=== PATIENT | female | born 1970 | race Caucasian/White ===

== ENCOUNTER 2023-11-05 06:56 | Emergency (ER) | payer OTHER, SELFPAY ==
--- NOTE | ~2023-11-05 | MR_ITS ---
EXAMINATION: MR BRAIN WITHOUT CONTRAST CLINICAL INFORMATION: Vertigo and dizziness COMPARISON: Same day noncontrast head CT TECHNIQUE: Multiplanar multisequence MR imaging of the brain was obtained without intravenous contrast. FINDINGS: There is no acute infarct on diffusion-weighted imaging. There is no intracranial hemorrhage on iron-sensitive imaging. No extra-axial collection or mass effect/herniation. There are several scattered foci of nonspecific supratentorial white matter T2/FLAIR signal abnormality. No hydrocephalus. The ventricles are normal in morphology and size. The major flow voids at the skull base are preserved. The midline structures are normal. The cerebellar tonsils are normally positioned. The craniocervical junction is normal. There is evidence of ACDF at C4-C5. There is a large disc extrusion at C3-C4 with severe spinal canal stenosis. Marrow signal is within normal limits. The visualized soft tissues are without significant abnormality. Mild ethmoid sinus mucosal thickening. Small right mastoid fluid. MR/MR head/brain wo con IMPRESSION: 1. No acute infarct or other acute intracranial abnormality. 2. There is a large disc extrusion at C3-C4 with severe spinal canal stenosis. If there are clinical symptoms attributable to myelopathy, this could be further assessed with a dedicated MRI of the cervical spine
--- NOTE | ~2023-11-05 | CT_ITS ---
EXAMINATION: CT HEAD WITHOUT CONTRAST CLINICAL INFORMATION: Dizziness COMPARISON: None available. TECHNIQUE: Contiguous axial imaging was performed from the skull base to vertex without intravenous administration of contrast. This CT examination was performed using dose optimization techniques as appropriate, variously including the following: *Automated exposure control *Adjustment of mA and/or kV according to patient size (this includes techniques or standardized protocols for targeted exams where dose is matched to indication/reason for exam; i.e. extremities or head) *Use of iterative reconstruction technique DLP: 635 mGy-cm FINDINGS: There is no evidence of acute intracranial hemorrhage or territorial infarction. No abnormal mass effect or midline shift is seen. Serrano to white matter differentiation is well preserved. No extra-axial fluid collections are identified. The ventricles are normal in size. There is no abnormal attenuation within the brain parenchyma. The osseous structures and soft tissues are normal. Small amount of fluid in the right mastoid air cells. The mastoid air cells and visualized portions of the paranasal sinuses are well aerated. CT/CT head/brain wo IV con IMPRESSION: 1. No acute intracranial pathology. 2. Small amount of fluid in the right mastoid air cells.
--- NOTE | ~2023-11-05 | XR_ITS ---
EXAMINATION: XR CHEST CLINICAL INFORMATION: Dizziness COMPARISON: Chest radiograph from 11/07/2017 TECHNIQUE: Frontal view of the chest was obtained. FINDINGS: No focal consolidation. No pneumothorax. Trachea is midline. Cardiac mediastinal silhouette is not enlarged. No large pleural effusion. Lower cervical spinal hardware, grossly intact. Soft tissues are unremarkable. XR/XR chest 1V IMPRESSION: No acute cardiopulmonary process.
[2023-11-05 07:06] VITALS: BP 146/78; PULSE 63; O2SAT 100
[2023-11-05 07:11] VITALS: BP 158/79; PULSE 78; RESP 16; TEMP 36.5; O2SAT 98; BMI 33.2
--- NOTE | 2023-11-05 07:22 | ECG_ITS ---
Test Reason : DIZZINESS Blood Pressure : / mmHG Vent. Rate : 059 BPM Atrial Rate : 059 BPM P-R Int : 184 ms QRS Dur : 080 ms QT Int : 442 ms P-R-T Axes : 052 039 071 degrees QTc Int : 437 ms Sinus bradycardia Otherwise normal ECG When compared with ECG of 07-NOV-2017 05:54, No significant change was found Referred By: Griffin Vickers Electronically Signed By:ZOFIA GARCIA MD
--- NOTE | 2023-11-05 07:26 | ED.GENADULT ---
HPI - General Adult General Chief complaint: Nausea/Vomiting/Diarrhea Stated complaint: NAUSEA VOMITING Time Seen by Provider: 11/05/23 07:21 Source: patient, family and EMS Mode of arrival: EMS Limitations: no limitations History of Present Illness ED Provider: DR. Vickers HPI narrative: 53-year-old female brought in by ambulance for evaluation of sudden onset of nausea and vomiting. Patient went to bed last night fine woke up at 05:00 felt hot, patient felt dizzy and room spinning around her then she started to have nausea and vomiting several times, patient had 1 loose stool episode in the morning, patient has epigastric pain thinks it is because of vomiting, otherwise declined headache, weakness, or numbness. Never had similar episodes in the past. Patient has been complaining of left ear pain, no facial pressure or nasal discharge. No other sick contacts, no recent travel, no recent use of antibiotic. Related Data Previous Rx's ?Medication ?Instructions ?Recorded sulfamethoxazole 800 1 tab PO BID #10 tabs 11/26/22 mg-trimethoprim 160 mg tablet (Bactrim DS) meclizine 25 mg tablet 25 mg PO BID PRN motion sickness 11/05/23 #20 tabs ondansetron 4 mg disintegrating 4 mg PO Q8-12H PRN nausea and 11/05/23 tablet vomiting #10 tabs Allergies Allergy/AdvReac Type Severity Reaction Status Date / Time bupropion [From WELLBUTRIN] Allergy Intermediate HIVES Verified 11/05/23 07:15 Review of Systems Review of Systems: All other systems are reviewed and are negative Constitutional: Reports as per HPI and Reports no additional constitutional complaints Eyes: Reports as per HPI and Reports no additional eye complaints Reports system reviewed and no additional complaints, except as documented Cardiovascular: Reports as per HPI and Reports no additional cardiovascular complaints Respiratory: Reports as per HPI and Reports no additional respiratory complaints Gastrointestinal: Reports as per HPI and Reports no additional gastrointestinal complaints Genitourinary: Reports no additional female genitourinary complaints Musculoskeletal: Reports no additional musculoskeletal complaints Skin/Breast: Reports system reviewed and no additional complaints, except as docu Psychiatric: Reports no additional psychiatric complaints Endocrine: Reports no additional endocrine complaints Hematologic/Lymphatic: Reports no additional hematologic/lymphatic complaints Allergic/Immunologic: Reports no additional allergic/immunologic complaints Reports system reviewed and no additional complaints, except as documented and Reports Abnormal speech present [facility] Social History Social History Alcohol intake: current Alcohol intake frequency: a few times a month Patient Tobacco Use Status: Never used Tobacco Smoked in Last 30 Days: Yes Use of substances other than those prescribed or required for medical reasons: No Advance Directives: No Advance Directives Information Provided: No Do you have a plan to hurt others: No Plan Physical Exam ED Vital Signs: Vital Signs - 24 hr 11/05/23 07:11 11/05/23 10:19 Temperature 97.7 F 97.5 F Pulse Rate 78 79 Respiratory Rate 16 11 L Blood Pressure 158/79 H 134/79 Pulse Oximetry 98 100 Oxygen Delivery Method Room Air Room Air BMI result Body Mass Index 33.2 Vital signs have been reviewed and appear to be correct. Blood pressure elevated. Heart rate normal. Respiratory rate normal. Temperature normal. Oxygen saturation normal. Appearance: Alert. Oriented X3. No acute distress. Head: Normal external exam. Normocephalic. Atraumatic. No Carrillo signs noted. No raccoon eyes noted Eyes: PERRLA. EOMI. Conjunctiva and sclera normal. Eyelids normal. ENT: TM's Normal. Pharynx normal. Uvula midline. Moist mucous membranes. No trismus noted. No drooling noted. No muffled voice noted. Neck: Normal inspection. Neck supple. FROM. No adenopathy. Thyroid Normal. No meningeal signs. No neck mass noted. CVS: Normal heart rate and rhythm. Heart sound normal. No murmurs noted. Pulses normal throughout. Respiratory: No respiratory distress. Painless inspiration. Breath sounds normal. No wheezes/rales/rhonchi noted. Chest nontender. No accessory muscle usage noted or decreased air movement noted. Abdomen: Soft and nontender. Bowel sounds normal in all 4 quadrants. No distention noted. No organomegaly noted. No visible injury noted. Back: No CVA tenderness. Full range of motion noted. Skin: Skin warm and dry. Normal skin color. Normal skin turgor. No rashes/lesions/lacerations noted. Extremities: No lower extremity edema. Extremities exhibit normal range of motion. Extremities nontender. Neuro: Oriented X 3. Cranial nerve exam: II-XII are grossly intact No motor deficit. No sensory deficit. Reflexes normal. Normal cerebellar exam, no [id number] dysmetria. 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 Time: 15:50 Medications Administered Discontinued Medications Generic Name Dose Route Start Last Admin Trade Name Freq PRN Reason Stop Dose Admin Al Hydroxide/Mg Hydroxide 30 ml 11/05/23 07:21 11/05/23 10:27 Magnesium Hydrox/Alum Hydrox 30 Ml Oral.Susp PO 11/05/23 07:22 30 ml ONCE ONE Administration Famotidine 20 mg 11/05/23 07:21 11/05/23 07:43 Famotidine/Pf 20 Mg/2 Ml Vial IVPUSH 11/05/23 07:22 20 mg ONCE ONE Administration Sodium Chloride 1,000 mls @ 999 mls/hr 11/05/23 07:22 11/05/23 10:45 Ns IV 11/05/23 08:22 Infused .Q1H1M ONE Infusion Lorazepam 1 mg 11/05/23 07:21 11/05/23 07:43 Lorazepam 2 Mg/Ml Vial IVPUSH 11/05/23 07:22 1 mg ONCE ONE Administration Lorazepam 1 mg 11/05/23 09:06 11/05/23 10:24 Lorazepam 2 Mg/Ml Vial IVPUSH 11/05/23 09:07 1 mg ONCE ONE Administration Meclizine HCl 25 mg 11/05/23 07:21 11/05/23 07:51 Meclizine Hcl 25 Mg Tablet PO 11/05/23 07:22 25 mg ONCE ONE Administration Meclizine HCl 25 mg 11/05/23 09:06 11/05/23 10:24 Meclizine Hcl 25 Mg Tablet PO 11/05/23 09:07 25 mg ONCE ONE Administration Medical Decision Making Differential Diagnosis Differential Diagnoses: The differential diagnosis associated with the presentation includes ( Cerebellar stroke, labyrinthitis, electrolyte derangement, dehydration, severe anemia.) Admission/Observation Consideration of admission/observation: Escalation of care including admission/observation considered Lab Data MDM Lab Attestation statement: I reviewed the patient's lab results. 11/05/23 07:50 11/05/23 07:50 Labs: Lab Results 11/05/23 11/05/23 Range/Units 07:50 07:51 WBC 17.0 H (4.8-10.8) X10*3/uL RBC 4.41 (4.20-5.50) X10*6/uL Hgb 13.2 (12.0-16.0) g/dl Hct 39.2 (37.0-47.0) % MCV 88.9 (80.0-98.0) fL MCH 29.9 (27.0-33.0) pg MCHC 33.7 (31.0-35.0) g/dl RDW 13.3 (11.0-16.0) % Plt Count 273 (160-400) X10*3/uL MPV 10.1 (9.4-12.3) fL Immature Gran % (Auto) 0.6 H (0.0-0.4) % Neut % (Auto) 86.7 H (45-73) % Lymph % (Auto) 8.2 L (20-40) % Angelina % (Auto) 3.4 (2-11) % Eos % (Auto) 0.6 (0-4) % Baso % (Auto) 0.5 (0-2) % Lymph # (Auto) 1.4 (1.2-4.9) X10*3/uL Angelina # (Auto) 0.6 (0.1-1.2) X10*3/uL Eos # (Auto) 0.1 (0.0-0.4) X10*3/uL Baso # (Auto) 0.1 (0.0-0.2) X10*3/uL Abs Immat Gran (auto) 0.10 H (0.00-0.03) X10*3/uL Absolute Neuts (auto) 14.7 H (2.0-8.3) x10*3/uL Absolute Nucleated RBC 0.000 (0.0-0.012) X10*3/uL Nucleated RBC % (auto) 0.0 (0.0-0.2) /100WBC Sodium 143 (135-145) mmol/L Potassium 4.1 (3.3-5.1) mmol/L Chloride 110 H (96-108) mmol/L Carbon Dioxide 21 L (22-29) mmol/L Anion Gap 16 (12-20) BUN 14 (9-16) mg/dL Creatinine 0.80 (0.5-1.4) mg/dL Estim Creat Clear Calc 72.9 Estimated GFR > 60 Random Glucose 140 H (60-115) mg/dL Calcium 9.5 (8.4-10.2) mg/dL Total Bilirubin 0.2 (0.0-1.0) mg/dL Direct Bilirubin < 0.2 (0.0-0.5) mg/dL AST 37 H (5-31) U/L ALT 37 H (0-31) U/L Alkaline Phosphatase 109 (39-117) U/L Troponin I High Sens < 2.7 (<3.5-17.0) ng/L B-Natriuretic Peptide 13 (<100) pg/mL Total Protein 6.8 (6.5-8.0) g/dL Albumin 4.0 (3.5-5.0) g/dL Lipase 25 (8-78) U/L Beta HCG, Quant 5 mIU/mL Influenza Type A (PCR) NEGATIVE (Negative) Influenza Type B (PCR) NEGATIVE (Negative) RSV RNA Qual (PCR) NEGATIVE (Negative) SARS-CoV-2 RNA (RT-PCR) NEGATIVE (Negative) Independent Interpretation I performed an independent interpretation of an: Plain X-Ray ( Chest:No acute cardiopulmonary process. ) and CT Scan ( Head:1. No acute intracranial pathology. 2. Small amount of fluid in the right mastoid air cells.) Interpretation: Brain MRI:. No acute infarct or other acute intracranial abnormality. 2. There is a large disc extrusion at C3-C4 with severe spinal canal stenosis. If there are clinical symptoms attributable to myelopathy, this could be further assessed with a dedicated MRI of the cervical spi Radiology Impression Discussion of test interpretation with radiology: I have reviewed the radiologist's reading. Discharge Plan Discharge Clinical Impression: Peripheral positional vertigo Patient Disposition: Home, Self-Care Instructions: Vertigo (ED) Additional Instructions: use percussion walking home you at risk of falling due to dizziness. Drink plenty of fluid and stay in bed if you feel dizzy. Return if worsening of symptoms. Prescriptions: New meclizine 25 mg tablet 25 mg PO BID PRN (Reason: motion sickness) Qty: 20 0RF ondansetron 4 mg tablet,disintegrating 4 mg PO Q8-12H PRN (Reason: nausea and vomiting) Qty: 10 0RF No Action sulfamethoxazole-trimethoprim [Bactrim DS] 800-160 mg tablet 1 tab PO BID Qty: 10 0RF Referrals: Corwin Jacobs MD [Primary Care Provider] - Stand Alone Forms: Work/School Release Print Language: Hungarian
[2023-11-05] MEDS: Famotidine/PF 20 MG/2 ML VIAL IVPUSH (07:43)
[2023-11-05] MEDS: LORazepam 2 MG/ML VIAL 1 MG IVPUSH ×2 (07:43→10:24)
[2023-11-05] MEDS: Meclizine HCl 25 MG TABLET PO ×2 (07:51→10:24)
[2023-11-05] MEDS: 0.9 % Sodium Chloride 1,000 ML 999 ML IV (07:52)
[2023-11-05 07:55] LABS: MANUAL DIFF FLAG NO
[2023-11-05 07:57] LABS: Basophils Absolute Auto 0.1 X10*3/uL (0.0-0.2); Basophils Percent Auto 0.5 % (0-2); Eosinophils Absolute Auto 0.1 X10*3/uL (0.0-0.4); Eosinophils Percent Auto 0.6 % (0-4); Hematocrit 39.2 % (37.0-47.0); Hemoglobin 13.2 g/dl (12.0-16.0); Imm Gran Pct Auto 0.6 % (0.0-0.4); Lymphocytes Absolute Auto 1.4 X10*3/uL (1.2-4.9); Lymphocytes Percent Auto 8.2 % (20-40); Mean Corpuscular HGB Conc 33.7 g/dl (31.0-35.0); Mean Corpuscular Hemoglobin 29.9 pg (27.0-33.0); Mean Corpuscular Volume 88.9 fL (80.0-98.0); Mean Platelet Volume 10.1 fL (9.4-12.3); Monocytes Absolute Auto 0.6 X10*3/uL (0.1-1.2); Monocytes Percent Auto 3.4 % (2-11); Neutrophils Absolute Auto 14.7 x10*3/uL (2.0-8.3); Neutrophils Percent Auto 86.7 % (45-73); Platelet Count 273 X10*3/uL (160-400); Red Blood Count 4.41 X10*6/uL (4.20-5.50); Red Cell Distribution Width 13.3 % (11.0-16.0)
[2023-11-05 08:17] LABS: B Type Natriuretic Peptide 13 pg/mL (<100)
[2023-11-05 08:18] LABS: HCG Quantitative 5 mIU/mL
[2023-11-05 08:20] LABS: Alanine Aminotransferase 37 U/L (0-31); Alkaline Phosphatase 109 U/L (39-117); Anion Gap 16 (12-20); Aspartate Amino Transferase 37 U/L (5-31); Bilirubin Direct < 0.2 mg/dL (0.0-0.5); Bilirubin Total 0.2 mg/dL (0.0-1.0); Blood Urea Nitrogen 14 mg/dL (9-16); Calcium 9.5 mg/dL (8.4-10.2); Carbon Dioxide 21 mmol/L (22-29); Chloride 110 mmol/L (96-108); Creatinine Clr Calc Pharmacy 72.9; Estimated Glomerular Filt Rate > 60; Glucose Random 140 mg/dL (60-115); Lipase 25 U/L (8-78); Potassium 4.1 mmol/L (3.3-5.1); Sodium 143 mmol/L (135-145); Total Protein 6.8 g/dL (6.5-8.0); Troponin-I High Sensitivity < 2.7 ng/L (<3.5-17.0)
[2023-11-05 08:41] LABS: Influenza A PCR NEGATIVE (Negative); Influenza B PCR NEGATIVE (Negative); Resp Syncy Virus RNA Qual PCR NEGATIVE (Negative); SARS COV2 PCR INHOUSE NEGATIVE (Negative)
[2023-11-05 10:19] VITALS: BP 134/79; PULSE 79; RESP 11; TEMP 36.4; O2SAT 100
[2023-11-05] MEDS: Magnesium Hydrox/Alum Hydrox 30 ML ORAL.SUSP PO (10:27)
[2023-11-05 15:53] VITALS: BP 112/55; PULSE 74; RESP 16; TEMP 36.7; O2SAT 96
[2023-11-05 16:05] LABS: Appearance Urine Clear; Color Urine Yellow; Glucose Urine UA Negative (Negative); Leukocyte Esterase Urine Negative (Negative); Nitrite Urine Negative (Negative); Urine Blood Negative (Negative); Urine Ketones Negative (Negative); Urine Protein Negative (Neg-Trace)
[2023-11-05 16:07] LABS: UPreg QC Valid YES; Urine Pregnancy NEGATIVE (NEGATIVE)
[2023-11-05 16:30] VITALS: BP 112/55; PULSE 74; RESP 16; TEMP 36.7; O2SAT 96
== END 2023-11-05 16:31 | disposition home or self-care (01) ==
PROVIDERS: Emergency Provider Emergency Medicine; PCP Internal Medicine
DX: H81.393 Other peripheral vertigo, bilateral (principal); R11.2 Nausea with vomiting, unspecified; R06.02 Shortness of breath; R10.2 Pelvic and perineal pain; Z79.899 Other long term (current) drug therapy; Z03.818 Encounter for observation for suspected exposure to other biological agents ruled out
CPT/HCPCS: 0241U; 36415; 70450; 70551; 71045; 80048; 80076; 81003; 81025; 83690; 83880; 84484; 84702; 85025; 93005; 96361; 96374; 96375; 96376; 99285; J2060

== ENCOUNTER → 2023-11-05 07:22 | Outpatient (BNV) | payer OTHER, SELFPAY | PROVIDERS: Emergency Provider Emergency Medicine; PCP Internal Medicine; Visit Provider Internal Medicine Cardiovascular Disease | DX: R00.1 Bradycardia, unspecified (principal) | CPT/HCPCS: 93010 ==